=== PATIENT | female | born 1985 | race African-American/Black ===

== ENCOUNTER → 2020-03-31 | Day surgery (SDC) | payer OTHER ==
[~2020-03-31] MED LIST: ACETAMINOPHEN 1000 MG/100 ML 100 ML IV ONE; BUPIVACAINE HCL 0.5% INJ 30 ML VIAL INJ ONE; CEFAZOLIN SOD 1 GM/NS 50ML 50 ML IV ONE; FENTANYL CITRATE/PF 100MCG/2 ML INJ ONE; MEPERIDINE HCL INJ 25 MG/ML VIAL ONE; NEOSTIGMINE 1 MG/ML 10ML VIAL ONE; TRAMADOL HCL 50 MG TAB ONE; ULTRAM50 MG PO
[2020-03-31 14:45] VITALS: BP 136/84
== END | disposition home or self-care (01) ==
LOC: OR 10:08
PROVIDERS: ATTEND Specialist
DX: S82.841A Displaced bimalleolar fracture of right lower leg, initial encounter for closed fracture (principal); W10.2XXA Fall (on)(from) incline, initial encounter; Y92.009 Unspecified place in unspecified non-institutional (private) residence as the place of occurrence of the external cause
CPT/HCPCS: 27814; 76000; 81025; C1713 ×4; J0131; J0690; J2175; J2710; J3010; J3590; U0002